=== PATIENT | female | born 1995 | race Caucasian/White ===

== ENCOUNTER → 2016-05-15 | Outpatient (REF) | payer OTHER | LOC: M LAB REF 16:50 | PROVIDERS: ATTEND Advanced Practice Midwife | DX: Z12.4 Encounter for screening for malignant neoplasm of cervix (principal); Z11.3 Encounter for screening for infections with a predominantly sexual mode of transmission | CPT/HCPCS: 87491; 87591; G0123 ==

== ENCOUNTER 2016-11-09 10:58 | Emergency (ER) | payer OTHER ==
[~2016-11-09] VITALS: Ht 149.9 cm; Wt 59.1 kg
[2016-11-09 10:59] VITALS: BP 115/76
[2016-11-09] MEDS ORDERED: ESOM0.1C PO (11:13)
[2016-11-09] MEDS ORDERED: DESO1TAB5 PO (11:13)
[2016-11-09] MEDS ORDERED: EXPOSURE KIT-ADULT 7 DAY SUPPLY PO ONE ×2 (12:15)
[2016-11-09] MEDS ORDERED: TRUVTAB PO (12:29)
[2016-11-09] MEDS ORDERED: RALT40TA PO (12:29)
[2016-11-09 12:33] LABS: BASO % 0.5 % (0.0-1.0); EOS % 0.6 % (0.0-3.0); LARGE UNSTAINED CELL # 0.1 K/mm3 (0.0-0.4); LARGE UNSTAINED CELL % 1.5 % (0.0-4.0); LYMPH # 1.7 K/mm3 (1.5-6.5); LYMPH % 27.4 % (24.0-44.0); MEAN CORPUSCULAR HEMOGLOBIN 30.4 pg (27.0-33.0); MEAN CORPUSCULAR HGB CONC 35.1 g/dl (32.0-36.5); MEAN CORPUSCULAR VOLUME 86.7 fl (80.0-96.0); MONO # 0.3 K/mm3 (0.0-0.8); MONO % 4.5 % (0.0-5.0); NEUTROPHILS # 4.1 K/mm3 (1.8-7.7); NEUTROPHILS % 65.5 % (36.0-66.0); PLATELET COUNT, AUTOMATED 284 k/mm3 (150-450); RED CELL DISTRIBUTION WIDTH 11.8 % (11.5-14.5); WHITE BLOOD COUNT 6.2 K/mm3 (4.0-10.0)
[2016-11-09 12:49] LABS: CONTROL LINE HCG INT CTR LINE PRESENT
[2016-11-09 12:59] LABS: HEPATITIS B SURFACE ANTIBODY NEGATIVE (POSITIVE)
[2016-11-09 14:21] LABS: ALBUMIN/GLOBULIN RATIO 1.08 (1.00-1.93); ALKALINE PHOSPHATASE 67 U/L (45-117); ALT/SGPT 19 U/L (12-78); ANION GAP 11 MEQ/L (8-16); AST/SGOT 17 U/L (15-37); BILIRUBIN,TOTAL 0.4 MG/DL (0.2-1.0); BLOOD UREA NITROGEN 15 MG/DL (7-18); CALCIUM LEVEL 8.4 MG/DL (8.5-10.1); CARBON DIOXIDE LEVEL 22 MEQ/L (21-32); CHLORIDE LEVEL 108 MEQ/L (98-107); CREATININE FOR GFR 0.63 MG/DL (0.55-1.02); GLOMERULAR FILTRATION RATE > 60.0 (>60); GLUCOSE, FASTING 82 MG/DL (70-105); POTASSIUM SERUM 3.9 MEQ/L (3.5-5.1); SODIUM LEVEL 141 MEQ/L (136-145); TOTAL PROTEIN 7.7 GM/DL (6.4-8.2)
== END 2016-11-09 12:57 | disposition home or self-care (01) ==
LOC: M ED 10:58
DX: Z77.21 Contact with and (suspected) exposure to potentially hazardous body fluids (principal); S61.032A Puncture wound without foreign body of left thumb without damage to nail, initial encounter; W26.8XXA Contact with other sharp object(s), not elsewhere classified, initial encounter; Y92.531 Health care provider office as the place of occurrence of the external cause; Y93.89 Activity, other specified; Y99.0 Civilian activity done for income or pay; Z79.3 Long term (current) use of hormonal contraceptives; Z88.1 Allergy status to other antibiotic agents; Z88.2 Allergy status to sulfonamides

== ENCOUNTER → 2016-12-31 | Outpatient (REF) | payer OTHER ==
[~2016-12-31] MED LIST: DESO1TAB5 PO; ESOM0.1C PO; RALT40TA PO; TRUVTAB PO
== END ==
LOC: M LAB REF 10:06
PROVIDERS: ATTEND Physician Assistant
DX: J02.9 Acute pharyngitis, unspecified (principal)

== ENCOUNTER → 2017-01-02 | Outpatient (CLI) | payer OTHER ==
[2017-01-02 18:03] LABS: BASO % 0.3 % (0.0-1.0); EOS # 0.1 10^3/uL (0.0-0.50); EOS % 0.7 % (0.0-3.0); IMMATURE GRANULOCYTE % 0.3 % (0-0); LYMPH # 1.8 10^3/uL (1.5-6.5); LYMPH % 17.7 % (24.0-44.0); MEAN CORPUSCULAR HEMOGLOBIN 29.5 pg (27.0-33.0); MEAN CORPUSCULAR HGB CONC 32.3 g/dl (32.0-36.5); MEAN CORPUSCULAR VOLUME 91.2 fl (80.0-96.0); MONO # 0.7 10^3/uL (0.0-0.8); MONO % 6.9 % (0.0-5.0); NEUTROPHILS # 7.6 10^3/uL (1.8-7.7); NEUTROPHILS % 74.1 % (36.0-66.0); PLATELET COUNT, AUTOMATED 261 10^3/uL (150-450); RED CELL DISTRIBUTION WIDTH 12.1 % (11.5-14.5); WHITE BLOOD COUNT 10.3 10^3/uL (4.0-10.0)
== END ==
LOC: M ADAMS 11:48
PROVIDERS: ATTEND Physician Assistant
DX: J02.9 Acute pharyngitis, unspecified (principal)

== ENCOUNTER → 2017-01-04 | Outpatient (REF) | payer OTHER | LOC: M LAB REF 17:17 | PROVIDERS: ATTEND Family Medicine | DX: J03.90 Acute tonsillitis, unspecified (principal) ==

== ENCOUNTER 2017-01-27 11:56 | Day surgery (SDC) | payer OTHER ==
[~2017-01-27] VITALS: Ht 149.9 cm; Wt 66.6 kg
[2017-01-27] MEDS ORDERED: NS 1,000 ML IV ONE (12:30)
[2017-01-27] MEDS ORDERED: fentaNYL 100 MCG/2 ML INJECTION (J3010) As Ordered ONE (13:41)
[2017-01-27] MEDS ORDERED: PROPOFOL 200 MG/20 ML VIAL As Ordered ONE (13:42)
[2017-01-27] MEDS ORDERED: LIDOCAINE 2% INJ 100 MG/5 ML SDV (FOR ANES.) As Ordered ONE (13:44)
--- NOTE | 2017-01-27 14:35 | ROOR ---
Patient Name: Lena Harrington Procedure Date: 01/27/2017 2:14 PM Date of : 1995 Age: 21 Room: [facility] Gender: Female Note Status: Finalized Procedure: Upper Endoscopy + Biopsies Indications: Heartburn, Exclusion of Thornton's esophagus Providers: Dawit Pantoja MD Referring MD: Janeth MADISON DO Requestaris Provider: Medicines: Monitored Anesthesia Care Complications: No immediate complications. Procedure: Pre-Anesthesia Assessment: - The heart rate, respiratory rate, oxygen saturations, blood pressure, adequacy of pulmonary ventilation, and response to care were monitored throughout the procedure. The Endoscope was introduced through the mouth, and advanced to the second part of duodenum. The upper GI endoscopy was accomplished without difficulty. The patient tolerated the procedure well. Findings: The Z-line was regular and was found 35 cm from the incisors. Multiple biopsies were obtained with cold forceps for evaluation to rule out Thornton's Esophagus randomly at the gastroesophageal junction. No other significant abnormalities were identified in a careful examination of the stomach. The exam of the duodenum was otherwise normal. Impression: - Z-line regular, 35 cm from the incisors. - Multiple biopsies were obtained at the gastroesophageal junction. - The examination was otherwise normal. Recommendation: - Patient has a contact number available for emergencies. The signs and symptoms of potential delayed complications were discussed with the patient. Return to normal activities tomorrow. Written discharge instructions were provided to the patient. - High fiber diet. - Discharge patient to home. - Follow an antireflux regimen. - Continue present medications. - Await pathology results. - Telephone GI clinic for pathology results in 1 week. - Check Portal Online for Path Results.([email or web address] - Return to referring physician. - The findings and recommendations were discussed with the patient's family. Dawit Pantoja MD Dawit Pantoja MD 01/27/2017 2:34:46 PM This report has been signed electronically. Number of Addenda: 0 Note Initiated On: 01/27/2017 2:14 PM Estimated Blood Loss: Estimated blood loss: none.
[2017-01-27 15:09] VITALS: BP 114/74
== END 2017-01-27 15:08 | disposition home or self-care (01) ==
LOC: M OPP 11:56
PROVIDERS: ATTEND Internal Medicine Gastroenterology
DX: R12 Heartburn (principal); K21.9 Gastro-esophageal reflux disease without esophagitis; Z88.2 Allergy status to sulfonamides; Z91.048 Other nonmedicinal substance allergy status; Z79.899 Other long term (current) drug therapy
CPT/HCPCS: 43239; 88305; J3010

== ENCOUNTER → 2017-04-23 | Outpatient (CLI) | payer OTHER ==
[2017-04-23 17:27] LABS: CONTROL LINE HCG INT CTR LINE PRESENT; HCG, SERUM QUALITATIVE NEGATIVE (NEGATIVE)
== END ==
LOC: M WUC 15:15
DX: J35.01 Chronic tonsillitis (principal)

== ENCOUNTER 2017-05-10 19:55 | Emergency (ER) | payer OTHER ==
[2017-05-10 20:34] LABS: BASO % 0.4 % (0.0-1.0); EOS % 0.6 % (0.0-3.0); HEMATOCRIT 37.7 % (36.0-47.0); HEMOGLOBIN 12.7 g/dl (12.0-16.0); IMMATURE GRANULOCYTE % 0.1 % (0-3.0); LYMPH # 2.8 10^3/uL (1.5-6.5); LYMPH % 38.9 % (24.0-44.0); MEAN CORPUSCULAR HEMOGLOBIN 29.6 pg (27.0-33.0); MEAN CORPUSCULAR HGB CONC 33.7 g/dl (32.0-36.5); MEAN CORPUSCULAR VOLUME 87.9 fl (80.0-96.0); MONO # 0.5 10^3/uL (0.0-0.8); MONO % 7.4 % (0.0-5.0); NEUTROPHILS # 3.8 10^3/uL (1.8-7.7); NEUTROPHILS % 52.6 % (36.0-66.0); PLATELET COUNT, AUTOMATED 272 10^3/uL (150-450); RED BLOOD COUNT 4.29 10^6/uL (4.00-5.40); RED CELL DISTRIBUTION WIDTH 11.9 % (11.5-14.5); WHITE BLOOD COUNT 7.2 10^3/uL (4.0-10.0)
[2017-05-10 20:50] LABS: INR 0.88
[2017-05-10 20:51] LABS: PARTIAL THROMBOPLASTIN TIME 35.7 SECONDS (26.8-37.9)
[2017-05-10] MEDS: COCAINE 4% TOP SOLN 4 ML VIAL TOP (22:00)
== END 2017-05-10 23:24 | disposition home or self-care (01) ==
LOC: M ED 19:55
DX: J95.830 Postprocedural hemorrhage of a respiratory system organ or structure following a respiratory system procedure (principal); K21.9 Gastro-esophageal reflux disease without esophagitis; Z79.899 Other long term (current) drug therapy; Z79.3 Long term (current) use of hormonal contraceptives; Z88.1 Allergy status to other antibiotic agents; Z88.8 Allergy status to other drugs, medicaments and biological substances; Z91.048 Other nonmedicinal substance allergy status
CPT/HCPCS: 85610

== ENCOUNTER → 2017-06-10 | Outpatient (REF) | payer OTHER ==
[2017-06-10 15:56] LABS: CHLAMYDIA DNA AMPLIFICATION NEGATIVE (NEGATIVE); GC DNA AMPLIFICATION NEGATIVE (NEGATIVE)
== END ==
LOC: M LAB REF 13:22
DX: Z11.3 Encounter for screening for infections with a predominantly sexual mode of transmission (principal)

== ENCOUNTER → 2018-05-03 | Outpatient (REF) | payer OTHER ==
[2018-05-03 19:24] LABS: INFLUENZA A AMPLIFICATION POSITIVE (NEGATIVE); INFLUENZA B AMPLIFICATION NEGATIVE (NEGATIVE)
== END ==
LOC: M LAB REF 18:36
PROVIDERS: ATTEND Physician Assistant Medical
DX: J11.1 Influenza due to unidentified influenza virus with other respiratory manifestations (principal)

== ENCOUNTER → 2019-08-04 | Outpatient (REF) | payer OTHER ==
[2019-08-07 13:05] LABS: CHLAMYDIA DNA AMPLIFICATION NEGATIVE (NEGATIVE); GC DNA AMPLIFICATION NEGATIVE (NEGATIVE)
== END ==
LOC: M SFHCWAGY 11:00
PROVIDERS: ATTEND Advanced Practice Midwife
DX: Z11.3 Encounter for screening for infections with a predominantly sexual mode of transmission (principal)

== ENCOUNTER → 2020-12-03 | Outpatient (REF) | payer OTHER ==
[~2020-12-03] MED LIST changes: +EMTR1TAB16 PO; -TRUVTAB PO
== END ==
LOC: M WUC 12:28
PROVIDERS: ATTEND Physician Assistant
DX: J06.0 Acute laryngopharyngitis (principal)

== ENCOUNTER 2023-03-29 10:29 | Emergency (ER) | payer OTHER ==
[~2023-03-29] VITALS: Ht 149.9 cm; Wt 68.3 kg
[2023-03-29 10:30] VITALS: TEMP 98.3
[2023-03-29] MEDS ORDERED: OMEP40CA5 (10:39)
[2023-03-29] MEDS ORDERED: TRAM50TA2 (10:39)
[2023-03-29] MEDS ORDERED: CARA1TAB6 (10:39)
[2023-03-29] MEDS ORDERED: SPIR50TA4 (10:39)
[2023-03-29 11:44] LABS: BASO % 0.3 % (0.0-1.0); HEMATOCRIT 42.6 % (36.0-47.0); LYMPH # 1.1 10^3/uL (1.5-5.0); LYMPH % 10.5 % (24.0-44.0); MEAN CORPUSCULAR HEMOGLOBIN 30.2 pg (27.0-33.0); MEAN CORPUSCULAR HGB CONC 32.9 g/dl (32.0-36.5); MEAN CORPUSCULAR VOLUME 91.8 fl (80.0-96.0); MONO # 0.5 10^3/uL (0.0-0.8); MONO % 5.1 % (2.0-8.0); NEUTROPHILS # 8.4 10^3/uL (1.5-8.5); NEUTROPHILS % 83.8 % (36.0-66.0); PLATELET COUNT, AUTOMATED 312 10^3/uL (150-450); RED BLOOD COUNT 4.64 10^6/uL (4.00-5.40)
[2023-03-29 12:14] LABS: LIPASE 42 U/L (12-53)
[2023-03-29 12:16] LABS: ALBUMIN 3.8 G/DL (3.2-5.2); ALKALINE PHOSPHATASE 87 U/L (46-116); ALT/SGPT 16 U/L (7.0-40); AST/SGOT 33 U/L (<34); BILIRUBIN,DIRECT < 0.1 MG/DL (<0.4); BILIRUBIN,TOTAL 0.3 MG/DL (0.3-1.2); TOTAL PROTEIN 7.4 G/DL (5.7-8.2)
[2023-03-29] MEDS: NS 1,000 ML IV ONE ×2 (13:19→15:23)
[2023-03-29] MEDS: ONDANSETRON 4MG 2ML VIAL IV ONE (13:19)
[2023-03-29] MEDS: KETOROLAC 30 MG/ML 1ML VIAL IV ONE (13:20)
[2023-03-29] MEDS ORDERED: ALIN500T2 PO (16:00)
[2023-03-29] MEDS ORDERED: ONDA4TAB6 PO (16:03)
[2023-03-29] MEDS ORDERED: KETO10TAB PO (16:05)
[2023-03-29 16:26] VITALS: BP 103/55; O2SAT 100
== END 2023-03-29 17:00 | disposition home or self-care (01) ==
LOC: M ED 10:29
DX: A07.2 Cryptosporidiosis (principal); K21.9 Gastro-esophageal reflux disease without esophagitis; F10.10 Alcohol abuse, uncomplicated; Z88.2 Allergy status to sulfonamides; Z91.048 Other nonmedicinal substance allergy status; Z79.83 Long term (current) use of bisphosphonates; Z79.891 Long term (current) use of opiate analgesic; Z79.899 Other long term (current) drug therapy
CPT/HCPCS: 80047; 80076; 81001; 83605; 83690; 84702; 85025; 87040; 87086; 87486; 87507; 87581; 87633; 87798; 87880; 96361; 96374; 96375; 99284; J1885; J2405

== ENCOUNTER → 2023-04-05 | Outpatient (REF) | payer OTHER ==
[~2023-04-05] MED LIST changes: +ALIN500T2 PO; +CARA1TAB6; +KETO10TAB PO; +OMEP40CA5; +ONDA4TAB6 PO; +SPIR50TA4; +TRAM50TA2
== END ==
LOC: M LAB REF 17:15
PROVIDERS: ATTEND Family Medicine
DX: N39.0 Urinary tract infection, site not specified (principal)

== ENCOUNTER 2023-10-01 11:54 | Day surgery (SDC) | payer OTHER ==
[~2023-10-01] VITALS: Ht 149.9 cm; Wt 76.1 kg
[~2023-10-01 11:54] MED LIST changes: -ESOM0.1C PO; +ESOM20CA2 PO; -OMEP40CA5; +OMEP40CA5 PO; +ONDA-282 PO; -ONDA4TAB6 PO; -SPIR50TA4; +SPIR50TA4 PO
[2023-10-01] MEDS: NS 1,000 ML IV ONE (12:16)
[2023-10-01] MEDS ORDERED: fentaNYL 100 MCG/2 ML INJECTION As Ordered ONE (12:49)
[2023-10-01] MEDS ORDERED: LIDOCAINE 2% 100MG/5ML SDV (FOR ANES.) As Ordered ONE (12:49)
[2023-10-01] MEDS ORDERED: propofoL 200 MG/20 ML VIAL As Ordered ONE (12:49)
[2023-10-01 13:21] VITALS: TEMP 98.1
[2023-10-01 13:40] VITALS: BP 114/70; O2SAT 99
== END 2023-10-01 13:49 | disposition home or self-care (01) ==
LOC: M OPP 11:54
PROVIDERS: ATTEND Surgery
DX: K29.70 Gastritis, unspecified, without bleeding (principal); K31.89 Other diseases of stomach and duodenum; Z79.899 Other long term (current) drug therapy; Z88.2 Allergy status to sulfonamides; Z91.048 Other nonmedicinal substance allergy status
CPT/HCPCS: 43239; 88305; J3010

== ENCOUNTER → 2023-12-08 | Outpatient (CLI) | payer OTHER | LOC: M RAD 07:46 | PROVIDERS: ATTEND Physician Assistant | DX: K29.70 Gastritis, unspecified, without bleeding (principal) ==

== ENCOUNTER → 2024-05-02 | Outpatient (REF) | payer OTHER, BC | LOC: M LAB REF 15:38 | PROVIDERS: ATTEND Nurse Practitioner Adult Health | DX: R19.7 Diarrhea, unspecified (principal) ==